=== PATIENT | female | born 1985 | race Caucasian/White ===

== ENCOUNTER 2021-03-02 15:41 | Emergency (ER) | payer OTHER ==
[~2021-03-02] VITALS: Ht 167.6 cm; Wt 76.2 kg
== END 2021-03-02 21:30 | disposition home or self-care (01) ==
LOC: ER 15:41
DX: R07.89 Other chest pain (principal); R00.2 Palpitations

== ENCOUNTER 2022-08-02 09:54 | Day surgery (SDC) | payer OTHER ==
[~2022-08-02] VITALS: Ht 167.6 cm; Wt 70.3 kg
== END 2022-08-03 01:10 | disposition home or self-care (01) ==
LOC: CIR.AMB 09:54
PROVIDERS: ATTEND Obstetrics & Gynecology
DX: R87.613 High grade squamous intraepithelial lesion on cytologic smear of cervix (HGSIL) (principal); Z20.822 Contact with and (suspected) exposure to COVID-19; Z88.0 Allergy status to penicillin; F17.200 Nicotine dependence, unspecified, uncomplicated